=== PATIENT | female | born 1955 | race African-American/Black ===

== ENCOUNTER → 2018-05-26 | Outpatient (CLI) | payer OTHER | LOC: CARD 10:22 | PROVIDERS: ATTEND Internal Medicine Interventional Cardiology | DX: R00.2 Palpitations (principal); I48.0 Paroxysmal atrial fibrillation; I10 Essential (primary) hypertension; R06.02 Shortness of breath; E78.5 Hyperlipidemia, unspecified; R42 Dizziness and giddiness | CPT/HCPCS: 93225; 93226; 93306 ==

== ENCOUNTER 2018-06-10 14:10 | Outpatient (RCR) | payer OTHER | END 2018-09-08 | LOC: CARD 14:10 | PROVIDERS: ATTEND Internal Medicine Interventional Cardiology | DX: I48.0 Paroxysmal atrial fibrillation (principal); R00.2 Palpitations | CPT/HCPCS: 93270 ==

== ENCOUNTER → 2018-07-03 | Outpatient (CLI) | payer OTHER ==
[~2018-07-03] MED LIST: CATHETER FLUSH 10 ML SYR IV PRN; REGADENOSON 0.4 MG/5 ML SYR (LEXISCAN) IV ONE
[2018-07-05 15:55] VITALS: BP 184/87
--- NOTE | 2018-07-05 15:55 | Cardiology Stress Test Report ---
Stress Test Report Type of NM Stress Test: Test Type: LEXISCAN 0.4MG/5ML Date of Procedure/Referring: Date of Procedure: Jul 03, 2018 PCP Vidhi Alarcon MD Admitting Physician Zane Luna DO Indications: Shortness of breath, hypertension, paroxysmal atrial fibrillation Baseline Heart Rate: 70 Baseline Blood Pressure: Blood Pressure Systolic: 184 Blood Pressure Diastolic: 87 Baseline EKG: Baseline EKG: sinus rhythm Summary & Conclusion: Summary: The patient was brought to the stress lab after informed consent was taken. Stress test was performed according to the Lexiscan protocol. 0.4 mg of IV Lexiscan was given. Low-grade exercise was performed. Baseline EKG showed sinus rhythm at 70 BPM. Initial blood pressure was 184/87 mmHg. Maximum heart rate was 93 bpm and blood pressure 174/88 mmHg. Patient did not have any chest pain or ST segment changes during the stress test. Few PVCs. 10.83 mCi of Myoview were given for rest imaging and 28.3 mCi of Myoview given for stress imaging. Transient ischemic dilatation score 0.77, EF 71 percent. Normal wall motion. Normal myocardial perfusion imaging during rest and stress. Conclusion: Pharmacological stress test was negative for ischemia. Normal LV function with no wall motion abnormalities. Normal myocardial perfusion imaging during rest and stress. Vidhi ALARCON MD Jul 05, 2018 15:55
== END ==
LOC: CARD 07:22
PROVIDERS: ATTEND Internal Medicine Interventional Cardiology
DX: R06.02 Shortness of breath (principal); E78.5 Hyperlipidemia, unspecified; I10 Essential (primary) hypertension; I48.0 Paroxysmal atrial fibrillation; R00.2 Palpitations
CPT/HCPCS: 78452; 93017

== ENCOUNTER 2019-06-02 12:21 | Outpatient (RCR) | payer OTHER | END 2019-08-31 | disposition home or self-care (01) | LOC: CARD 12:21 | PROVIDERS: ATTEND Internal Medicine Interventional Cardiology | DX: I48.0 Paroxysmal atrial fibrillation (principal); I47.1 Supraventricular tachycardia; I49.3 Ventricular premature depolarization; R00.2 Palpitations; I10 Essential (primary) hypertension; E78.5 Hyperlipidemia, unspecified ==

== ENCOUNTER → 2020-09-16 | Outpatient (CLI) | payer OTHER ==
[~2020-09-16] VITALS: Ht 162 cm; Wt 98.0 kg
[~2020-09-16] MED LIST changes: -CATHETER FLUSH 10 ML SYR IV PRN
[2020-09-16] MEDS: CATHETER FLUSH 10 ML SYR IV PRN ×2 (07:27→09:35)
[2020-09-16 09:23] VITALS: BP 131/70
--- NOTE | 2020-09-16 16:03 | STRESS TEST ---
DATE OF SERVICE: 09/16/2020 RESTING AND POST REGADENOSON TECHNETIUM-99M TETROFOSMIN SPECT CT IMAGING ORDERING PHYSICIAN: Haylee Arellano APRN PRIMARY PHYSICIAN: Dr. Zane Luna. CLINICAL DIAGNOSIS: Chest discomfort. Baseline images were carried out after injection of 10.73 mCi of technetium-99m Tetrofosmin. This was followed by 0.4 mg regadenoson and 28 mCi of technetium-99m Tetrofosmin for stress imaging. The electrocardiogram showed sinus rhythm with subtle, nonspecific T-wave abnormality at baseline. It did not change significantly with regadenoson infusion. The patient tolerated the procedure well. Review of images at rest and following stress does not indicate any distinct perfusion defects consistent with significant myocardial ischemia or infarction. Gated images show normal global left ventricular systolic function with normal regional wall motion. Left ventricular ejection fraction is calculated to be 71%. Left ventricular end diastolic volume is 49 mL. TID is absent (1.15). CONCLUSIONS: 1. No evidence of any significant myocardial ischemia or infarction on this study. 2. Normal regional wall motion. 3. Normal global left ventricular systolic function with a calculated ejection fraction of 71%. Job ID: [id number] DocumentID: [id number] Dictated Date: 09/16/2020 15:05:13 Chlorobutadiene Scrubber Operator Date: 09/16/2020 16:02:29 Dictated By: ULISES COPELAND MD, MA, FACP, FACC,
== END ==
LOC: CARD 07:30
PROVIDERS: ATTEND Nurse Practitioner Family
DX: R07.89 Other chest pain (principal)
CPT/HCPCS: 78452; 93017; 93225; 93226; 93306; A9502

== ENCOUNTER 2021-10-31 15:09 | Day surgery (SDC) | payer MEDICARE, OTHER ==
[~2021-10-31] VITALS: Ht 162 cm; Wt 96.7 kg
[2021-10-31] MEDS ORDERED: LIDOCAINE 1% INJ 20 ML VIAL ONE (15:27)
[2021-10-31 15:49] VITALS: BP 132/72
--- NOTE | 2021-11-01 02:09 | OPERATIVE REPORT ---
DATE OF SERVICE: 10/31/2021 INDICATIONS: The patient is a 66-year-old lady, who has palpitations that are infrequent, but quite bothersome to her. Implantable loop recorder implantation was carried out today after having obtained an informed consent. DESCRIPTION OF PROCEDURE: [facility] The left prepectoral area was prepared and draped in the usual sterile fashion. Lidocaine 1% was used for local anesthesia. The tools provided with the [employer]onic LINQ II device were used to make a subcutaneous pocket anterior to the left fourth intercostal space into which the device was placed and the wound edges were closed using Dermabond and Steri-Strips. She tolerated the procedure well. The serial number of the devices [id number]. Job ID: [id number] DocumentID: [id number] Dictated Date: 10/31/2021 16:05:20 Vocational Horticulture Instructor Date: 11/01/2021 02:08:40 Dictated By: ULISES COPELAND MD, MA, FACP, FACC,
== END 2021-10-31 16:33 | disposition home or self-care (01) ==
LOC: CATH 15:09
PROVIDERS: ATTEND Internal Medicine Cardiovascular Disease
DX: I48.0 Paroxysmal atrial fibrillation (principal); R07.89 Other chest pain; E78.5 Hyperlipidemia, unspecified; I10 Essential (primary) hypertension; I34.0 Nonrheumatic mitral (valve) insufficiency; I65.23 Occlusion and stenosis of bilateral carotid arteries; E78.2 Mixed hyperlipidemia; Z79.01 Long term (current) use of anticoagulants
CPT/HCPCS: 33285